=== PATIENT | female | born 1990 ===

== ENCOUNTER 2020-02-29 11:28 | Emergency (ER) | payer OTHER ==
[~2020-02-29] VITALS: Ht 167.6 cm; Wt 99.8 kg
[2020-02-29] MEDS ORDERED: ZITHROMAX500 MG PO (15:48)
== END 2020-02-29 15:56 | disposition home or self-care (01) ==
LOC: ER 11:28
DX: B34.9 Viral infection, unspecified (principal); Z20.828 Contact with and (suspected) exposure to other viral communicable diseases